=== PATIENT | male | born 1950 | race Asian ===

== ENCOUNTER 2018-09-27 10:33 | Emergency (ER) | payer MEDICARE, OTHER ==
[~2018-09-27] VITALS: Ht 167.6 cm; Wt 72.6 kg
[2018-09-27 10:33] VITALS: BP_SYST 151
[~2018-09-27 10:33] MED LIST: APR25 PO; COLL100 PO; CYAN100020 IM; INSU100C5; LOVI40 SQ; NEU100 PO; POTA10TA15 PO; PRO20 PO; REM15 PO; TERA10CA4 PO
[2018-09-27 11:36] LABS: CALCIUM 10.9 mg/dL (8.4-11.0); CREATININE 2.5 mg/dL (0.55-1.30); POTASSIUM 3.7 mmol/L (3.5-5.1)
[2018-09-27 11:37] LABS: HEMATOCRIT 45.6 % (36-54); HEMOGLOBIN 15.4 g/dL (14.0-18.0); MEAN CORPUSCULAR HEMOGLOBIN 28 pg (27-31); MEAN CORPUSCULAR HGB CONC 34 % (32-36); MEAN CORPUSCULAR VOLUME 83 fL (79.0-98.0); PLATELET COUNT (AUTO) 213 K/uL (130-430); RED BLOOD CELL COUNT(AUTO) 5.49 MIL/uL (4.2-6.2); RED CELL DISTRIBUTION WIDTH 12.8 % (9.0-15.0)
[2018-09-27 11:38] LABS: BASOPHILS # (AUTO) 0.1 K/uL (0.0-0.2); BASOPHILS % (AUTO) 1.1 % (0.0-2.0); EOSINOPHILS # (AUTO) 0.5 K/uL (0.0-0.4); EOSINOPHILS % (AUTO) 3.8 % (0.0-4.0); LYMPHOCYTES # (AUTO) 2.8 K/uL (1.0-5.5); MONOCYTES # (AUTO) 0.8 K/uL (0.0-1.0); MONOCYTES % (AUTO) 6.7 % (1.7-9.3); NEUTROPHILS # (AUTO) 7.8 K/uL (1.8-7.7); NEUTROPHILS % (AUTO) 65.4 % (40.0-70.0)
[2018-09-27 11:39] LABS: ALBUMIN 3.1 g/dL (3.4-4.8); TOTAL BILIRUBIN 0.5 mg/dL (0.0-1.0); URIC ACID 11.2 mg/dL (2.4-7.0)
[2018-09-27 14:20] VITALS: BP_SYST 133
== END 2018-09-27 14:18 | disposition short-term general hospital (02) ==
LOC: SED 10:33
DX: M10.062 Idiopathic gout, left knee (principal); G61.0 Guillain-Barre syndrome; E11.9 Type 2 diabetes mellitus without complications; I10 Essential (primary) hypertension; Z88.0 Allergy status to penicillin; Z88.1 Allergy status to other antibiotic agents; Z79.899 Other long term (current) drug therapy
CPT/HCPCS: 36415; 73560-TC; 80053; 84550-TC; 85025; 99285

== ENCOUNTER 2018-10-27 13:03 | Inpatient (IN) | payer MEDICARE ==
[~2018-10-27] VITALS: Ht 167.6 cm; Wt 84.4 kg
[2018-10-27 13:03] VITALS: BP_SYST 155
[2018-10-27] MEDS ORDERED: NACL 0.9% 1,000 ML IV ONE (13:05)
--- NOTE | 2018-10-27 13:05 | NUR ---
Patient to ER bed 4 to gown for evaluation. Side rails up.
--- NOTE | 2018-10-27 13:10 | NUR ---
Patient arrived via BLS ambulance, from home. Patient c/c of generalized weakness x 2 days, and fever. Current temperature of 103.1. Patient has history of DM and HTN. No medications have been used to treat symptoms. Patient denies pain at the moment, appetite decreased. Patient denies body aches, nausea, vomiting, diarrhea, chest pain, or shortness of breath. Will continue to follow up and monitor. Patient placed on engine monitor.
--- NOTE | 2018-10-27 13:12 | NUR ---
ER at bedside examining patient.
[2018-10-27] MEDS ORDERED: IBUPROFEN 800 MG TABLET PO ONE (13:30)
[2018-10-27] MEDS ORDERED: ACETAMINOPHEN 500 MG TABLET PO ONE (13:30)
[2018-10-27 13:39] LABS: BASOPHILS # (AUTO) 0.3 K/uL (0.0-0.2); BASOPHILS % (AUTO) 1.8 % (0.0-2.0); EOSINOPHILS # (AUTO) 0.1 K/uL (0.0-0.4); EOSINOPHILS % (AUTO) 0.6 % (0.0-4.0); HEMATOCRIT 38.7 % (36-54); HEMOGLOBIN 12.6 g/dL (14.0-18.0); LYMPHOCYTES # (AUTO) 1.9 K/uL (1.0-5.5); LYMPHOCYTES % (AUTO) 12.4 % (20.5-51.5); MEAN CORPUSCULAR HEMOGLOBIN 28 pg (27-31); MEAN CORPUSCULAR HGB CONC 33 % (32-36); MEAN CORPUSCULAR VOLUME 87 fL (79.0-98.0); MONOCYTES # (AUTO) 1.1 K/uL (0.0-1.0); MONOCYTES % (AUTO) 6.9 % (1.7-9.3); NEUTROPHILS # (AUTO) 12.1 K/uL (1.8-7.7); NEUTROPHILS % (AUTO) 78.3 % (40.0-70.0); PLATELET COUNT (AUTO) 170 K/uL (130-430); RED BLOOD CELL COUNT(AUTO) 4.47 MIL/uL (4.2-6.2); RED CELL DISTRIBUTION WIDTH 14.9 % (9.0-15.0); WHITE BLOOD COUNT (AUTO) 15.5 K/uL (4.8-10.8)
[2018-10-27 13:40] LABS: CALCIUM 8.1 mg/dL (8.4-11.0); CREATININE 2.33 mg/dL (0.55-1.30)
[2018-10-27 13:45] LABS: PROTHROMBIN TIME 10.4 SECS (9.5-12.5)
[2018-10-27 13:46] LABS: ALBUMIN 2.6 g/dL (3.4-4.8); TOTAL BILIRUBIN 0.7 mg/dL (0.0-1.0)
--- NOTE | 2018-10-27 13:49 | NUR ---
Critical value obtained, Troponin 0.192, MD made aware. No change in orders.
[2018-10-27] MEDS ORDERED: ASPIRIN 81 MG TAB.CHEW PO ONE (14:00)
[2018-10-27] MEDS ORDERED: cefTRIAXone 1 GM IVPB PREMIX 50 ML IV ONE (14:15)
--- NOTE | 2018-10-27 14:20 | NUR ---
Patient has temperature of 103.0, cooling measures implemented. Removed all excess clothing, placed in gown, removed blankets, and applied ice packs to bilateral groin, bilateral axilla, and bilateral chest. Will recheck.
[2018-10-27] MEDS ORDERED: AZITHROMYCIN 500 MG in NS 250 ML IV ONE (14:30)
[2018-10-27] MEDS: NACL 0.9% 1,000 ML IV SCH ×3 (14:45→20:51)
[2018-10-27] MEDS ORDERED: CETI1TAB2 PO (14:55)
[2018-10-27] MEDS ORDERED: LISI-600 PO (14:55)
[2018-10-27] MEDS ORDERED: FEBU80TA PO (14:55)
--- NOTE | 2018-10-27 14:55 | NUR ---
Patient has temperature of 102.1, cooling measures implemented. Removed all excess clothing, placed in gown, removed blankets, and applied ice packs to bilateral groin, bilateral axilla, and bilateral chest. Will recheck.
[2018-10-27] MEDS ORDERED: LEVOFLOXACIN 500 MG/D5W 100 ML IV ONE (15:00)
--- NOTE | 2018-10-27 15:00 | NUR ---
Orders obtained from Dr. Pedraza, entered by RN.
[2018-10-27] MEDS ORDERED: NPH,100V2 SQ (15:36)
[2018-10-27] MEDS ORDERED: COLC0.6T67 PO (15:36)
[2018-10-27] MEDS ORDERED: FAMO40TA7 PO (15:36)
[2018-10-27] MEDS ORDERED: ASA81 PO (15:36)
[2018-10-27] MEDS ORDERED: ATOR20TA64 PO (15:36)
[2018-10-27] MEDS ORDERED: NOR10 PO (15:36)
[2018-10-27] MEDS ORDERED: ATEN50TA PO (15:36)
[2018-10-27] MEDS ORDERED: PRO20 PO (15:36)
[2018-10-27] MEDS ORDERED: FAMO40OR4 PO (15:36)
[2018-10-27] MEDS ORDERED: ERGO500020 PO (15:36)
--- NOTE | 2018-10-27 15:45 | NUR ---
Patient will be admitted to care of Dr. Pedraza. Admitted to Tele unit. Will go to room 100A. Belongings list completed. Summary report printed. Report will be given at bedside.
--- NOTE | 2018-10-27 15:57 | NUR ---
Admission Note Received patient from ER with diagnosis of Influenza. Initial Plan of Care discussed-patient verbalized understanding. Family at bedside. Oriented to room, call light, pain management and safety.
[2018-10-27] MEDS ORDERED: OSELTAMIVIR PHOSPHATE 6 MG/1 ML, 60 ML SUSP PO ONE (16:00)
[2018-10-27] MEDS ORDERED: DOCUSATE SODIUM 100 MG/10 ML UDC PO PRN (16:00)
[2018-10-27] MEDS ORDERED: CYANOCOBALAMIN IM SCH (16:00)
[2018-10-27] MEDS ORDERED: hydrALAZINE HCL 20 MG/ML VIAL IVP PRN (16:00)
--- NOTE | 2018-10-27 16:14 | NUR ---
Dr. krueger Rounds at this time, family remains at bedside, will follow through with MD orders
[2018-10-27 16:36] VITALS: BP_SYST 135
--- NOTE | 2018-10-27 16:51 | NUR ---
Tatum-flu given at this time per MD orders, asked Dr. Pedraza at the nurses' station. Patient tolerated well, family remains at bedside, safety precautions remain in place, bedside table and call light within reach, will continue to monitor patient
--- NOTE | 2018-10-27 17:06 | NUR ---
CONSULTATION PAGED/CALLED Reason for Consultation: [] ELEVATED TROP Person Who was Notified: [] SAMEER Consulting Physician: [] DR LOCK Seismic Plotter Specialty: [] CARDIOLOGY Ordering Physician: [] DR DILL
--- NOTE | 2018-10-27 17:07 | NUR ---
CONSULTATION PAGED/CALLED Reason for Consultation: [] SEPSIS Person Who was Notified: [] DR ULISES NEFF Consulting Physician: [] DR ULISES NEFF Phytopathologist Specialty: [] ID Ordering Physician: [] DR Rafael DILL
--- NOTE | 2018-10-27 17:30 | NUR ---
Spoke with Dr. Mia Peterson US transferred MD to wrong patient, Dr. Bellamy spoke with nurse and got report on wrong patient, was able to talk to Dr. Bellamy and tell him about elevated troponin for patient Usama Cosmejhoana. stated to not call him tonight for elevated troponin tonight
--- NOTE | 2018-10-27 17:42 | NUR ---
ERRONEOUS REPORT FOR A ANOTHER PT WAS CALLED TO DR LOCK FOR CARDIOLOGY CONSULT. CALLED DR LOCK AGAIN TO CORRECT AND CLARIFY THE RIGHT PT WITH CARDIOLOGY CONSULT. SPOKE TO SAMEER AT THE EXCHANGE AND LEFT MESSAGE ON HIS CELL PHONE. DR LOCK CALLED BACK AND THE RIGHT INFO WITH CARDIOLOGY CONSULT WAS GIVEN BY THE NURSE, CHRISTIAN.
--- NOTE | 2018-10-27 17:50 | NUR ---
Spoke with Dr. Bellamy Again gave him report on patient and informed him about elevated troponin, MD verbalized understanding and stated again to not call him for critical troponins tonight, will endorse to night warehouse selector nurse
--- NOTE | 2018-10-27 18:20 | NUR ---
UA sent to Lab at this time, patient voided 350 mL clear yellow urine per urinal. No complaints of pain, breathing unlabored on room air, IV fluids infusing at this time. Eafety precautions remain in place, bedside table and call light within reach, will continue to monitor patient
[2018-10-27 18:21] LABS: BILIRUBIN,URINE NEGATIVE (NEGATIVE); BLOOD, URINE NEGATIVE (NEGATIVE); CLARITY/URINE CLEAR (CLEAR); COLOR,URINE YELLOW (YELLOW); GLUCOSE,URINE NEGATIVE (NEGATIVE); KETONES,URINE NEGATIVE (NEGATIVE); LEUKOCYTE ESTERASE ,URINE NEGATIVE (NEGATIVE); NITRITE, URINE NEGATIVE (NEGATIVE); PH,URINE 8.5 (5.0-8.0); PROTEIN URINE 3+ (NEGATIVE); UROBILINOGEN,URINE 0.2 (0.2-1.0)
[2018-10-27 18:36] LABS: BACTERIA,URINE FEW /HPF (None Seen); RBC,URINE NONE SEEN /HPF (0-3); WBC,URINE 0-3 /HPF (0-3)
[2018-10-27 18:37] LABS: FINE GRANULAR CASTS,URINE 0-10 /LPF (None Seen); MUCUS,URINE None Seen /LPF (None Seen)
--- NOTE | 2018-10-27 18:54 | NUR ---
Closing Note patient resting in bed, awake and alert, HOB elevated, IV site remains patent, safety precautions remain in place, bedside table and call light within reach, bed alarm on, will endorse to grocery packer nurse
[2018-10-27 19:45] VITALS: BP_SYST 145
--- NOTE | 2018-10-27 19:45 | NUR ---
INITIAL NOTE AT INITIAL ASSESSMENT, PATIENT IS RESTING IN BED, STABLE, NO SIGNS OF RESPIRATORY DISTRESS. PATIENT VERBALIZES NO SOB OR PAIN. PLAN OF CARE FOR THE EVENING IS COMMUNICATED WITH THE PATIENT. CALL LIGHT- TEACH BACK IS SUCCESSFUL. BED IS LOCKED, ALARMED, AND AT THE LOWEST LEVEL. FALL, SAFETY, AND RESPIRATORY PRECAUTIONS WILL BE IN PLACE THROUGHOUT THE SHIFT.
[2018-10-27] MEDS: MIRTAZAPINE 15 MG TABLET PO SCH (20:42)
[2018-10-27] MEDS: hydrALAZINE HCL 25 MG TABLET PO SCH (20:43)
[2018-10-27] MEDS: ATENOLOL 50 MG TABLET (TENORMIN) PO SCH (20:43)
[2018-10-27] MEDS: GABAPENTIN 100 MG CAPSULE PO SCH (20:43)
[2018-10-27] MEDS: TERAZOSIN HCL 5 MG CAPSULE (HYTRIN) PO SCH (20:44)
[2018-10-27] MEDS: OSELTAMIVIR PHOSPHATE 6 MG/1 ML, 60 ML SUSP PO SCH (20:45)
[2018-10-27] MEDS ORDERED: TERAZOSIN HCL 10 MG PO SCH (21:00)
--- NOTE | 2018-10-27 21:43 | NUR ---
NOTE SCHEDULED PM MEDICATIONS GIVEN AT THIS TIME. PATIENT IS RESTING IN BED, STABLE, NO SIGNS OF RESPIRATORY DISTRESS. CALL LIGHT WITHIN IN REACH. BED IS LOCKED, ALARMED, AND AT THE LOWEST LEVEL.
--- NOTE | 2018-10-27 23:40 | NUR ---
NOTE PATIENT IS SLEEPING, STABLE, NO SIGNS OF RESPIRATORY DISTRESS. CALL LIGHT WITHIN IN REACH. BED IS LOCKED, ALARMED, AND AT THE LOWEST LEVEL.
[2018-10-28 00:06] VITALS: BP_SYST 129
--- NOTE | 2018-10-28 01:38 | NUR ---
NOTE PATIENT IS SLEEPING, STABLE, NO SIGNS OF RESPIRATORY DISTRESS. CALL LIGHT WITHIN IN REACH. BED IS LOCKED, ALARMED, AND AT THE LOWEST LEVEL.
--- NOTE | 2018-10-28 03:35 | NUR ---
NOTE PATIENT IS SLEEPING, STABLE, NO SIGNS OF RESPIRATORY DISTRESS. CALL LIGHT WITHIN IN REACH. BED IS LOCKED, ALARMED, AND AT THE LOWEST LEVEL.
--- NOTE | 2018-10-28 04:24 | NUR ---
NOTE PATIENT IS RESTING IN BED, STABLE, NO SIGNS OF RESPIRATORY DISTRESS. CALL LIGHT WITHIN IN REACH. BED IS LOCKED, ALARMED, AND AT THE LOWEST LEVEL.
--- NOTE | 2018-10-28 05:14 | NUR ---
NOTE PATIENT IS RESTING IN BED, STABLE, NO SIGNS OF RESPIRATORY DISTRESS. CALL LIGHT WITHIN IN REACH. BED IS LOCKED, ALARMED, AND AT THE LOWEST LEVEL.
[2018-10-28 06:40] LABS: BASOPHILS # (AUTO) 0.1 K/uL (0.0-0.2); BASOPHILS % (AUTO) 0.8 % (0.0-2.0); CALCIUM 7.2 mg/dL (8.4-11.0); CREATININE 2.3 mg/dL (0.55-1.30); EOSINOPHILS # (AUTO) 0.1 K/uL (0.0-0.4); EOSINOPHILS % (AUTO) 1.3 % (0.0-4.0); HEMATOCRIT 34.8 % (36-54); HEMOGLOBIN 11.4 g/dL (14.0-18.0); LYMPHOCYTES # (AUTO) 1.3 K/uL (1.0-5.5); LYMPHOCYTES % (AUTO) 12.2 % (20.5-51.5); MEAN CORPUSCULAR HEMOGLOBIN 29 pg (27-31); MEAN CORPUSCULAR HGB CONC 33 % (32-36); MEAN CORPUSCULAR VOLUME 87 fL (79.0-98.0); MONOCYTES # (AUTO) 0.8 K/uL (0.0-1.0); MONOCYTES % (AUTO) 7.5 % (1.7-9.3); NEUTROPHILS # (AUTO) 8.6 K/uL (1.8-7.7); NEUTROPHILS % (AUTO) 78.2 % (40.0-70.0); PLATELET COUNT (AUTO) 132 K/uL (130-430); POTASSIUM 4.3 mmol/L (3.5-5.1); RED BLOOD CELL COUNT(AUTO) 3.99 MIL/uL (4.2-6.2); RED CELL DISTRIBUTION WIDTH 15.1 % (9.0-15.0); WHITE BLOOD COUNT (AUTO) 10.9 K/uL (4.8-10.8)
[2018-10-28 06:50] LABS: ALBUMIN 1.9 g/dL (3.4-4.8); TOTAL BILIRUBIN 0.5 mg/dL (0.0-1.0)
--- NOTE | 2018-10-28 06:55 | NUR ---
CLOSING NOTE PATIENT SLEPT WELL THROUGHOUT THE SHIFT. AT THIS TIME, PATIENT IS RESTING IN BED, STABLE, NO SIGNS OF RESPIRATORY DISTRESS. CALL LIGHT WITHIN REACH. BED IS LOCKED, ALARMED, AND AT THE LOWEST LEVEL. WILL CONTINUE TO MONITOR UNTIL SHIFT REPORT IS GIVEN AT BEDSIDE TO AM NURSE. FALL AND SAFETY PRECAUTIONS HAVE BEEN IN PLACE THROUGHOUT SHIFT.
--- NOTE | 2018-10-28 07:12 | NUR ---
Nutrition Update George Scale 18 noted. Pt admitted for Influenza Diet: [facility] diet BMI: 30 kg/m2 RD to follow per nutrition care standards.
--- NOTE | 2018-10-28 08:00 | NUR ---
AM rounds: Awake, oriented x4. States " I feel a little better." Patient is bedrest, states he does not ambulate as much even at home due to gout. Encouraged patient to ask for assist for adls. Call light within reach.
[2018-10-28 08:30] VITALS: BP_SYST 135
[2018-10-28] MEDS: GABAPENTIN 100 MG CAPSULE PO SCH ×3 (08:34→21:12)
[2018-10-28] MEDS: ATENOLOL 50 MG TABLET (TENORMIN) PO SCH ×2 (08:36→21:14)
[2018-10-28] MEDS: hydrALAZINE HCL 25 MG TABLET PO SCH ×3 (08:37→21:11)
[2018-10-28] MEDS: NACL 0.9% 1,000 ML IV SCH ×2 (08:57→11:58)
[2018-10-28] MEDS ORDERED: ENOXAPARIN SODIUM 30 MG/0.3 ML SYRINGE SUBCUT SCH (09:00)
[2018-10-28] MEDS ORDERED: ATORVASTATIN 20 MG TABLET PO SCH (09:00)
[2018-10-28] MEDS ORDERED: amLODIPine BESYLATE 10 MG TABLET PO SCH (09:00)
[2018-10-28] MEDS ORDERED: FAMOTIDINE 20 MG TABLET PO SCH (09:00)
[2018-10-28] MEDS ORDERED: COLCHICINE 0.6 MG TABLET PO SCH (09:00)
[2018-10-28] MEDS ORDERED: TAMSULOSIN HCL 0.4 MG CAP PO SCH (09:00)
[2018-10-28] MEDS ORDERED: FLUoxetine HCL 20 MG CAPSULE (PROzac) PO SCH (09:00)
[2018-10-28] MEDS ORDERED: ASPIRIN 81 MG TAB.CHEW PO SCH (09:00)
[2018-10-28] MEDS ORDERED: ENOXAPARIN SODIUM 40 MG/0.4 ML SYRINGE SQ SCH (09:00)
[2018-10-28] MEDS: OSELTAMIVIR PHOSPHATE 6 MG/1 ML, 60 ML SUSP PO SCH ×2 (09:13→21:13)
--- NOTE | 2018-10-28 11:31 | NUR ---
DC Planning: Contacted [facility] dept/[place] # [phone], fax# [phone], updated pt 's status, pending clay carman consultation dt elevated Tr x3. CM is waiting for the assigned CM returning call for further instructions. Addendum: 10/28/18 at 1358 by Lidya Boles RN >> Faxed transfer order to [facility] dept/nitza Ribeiro fax# [phone]. The pt is stable , need Tele bed, no isolation .
--- NOTE | 2018-10-28 12:11 | NUR ---
Bladder Scan: Scan is done with 147 residual urine.
[2018-10-28 12:33] VITALS: BP_SYST 142
[2018-10-28] MEDS ORDERED: methylPREDNISolone SOD SUCC 40 MG/ML VIAL IVP ONE (13:15)
[2018-10-28] MEDS ORDERED: methylPREDNISolone SOD SUCC/PF 62.5 MG/ML VIAL IVP SCH ×2 (13:15→18:00)
[2018-10-28] MEDS ORDERED: LEVOFLOXACIN 250 MG/D5W 50 ML IV SCH (13:30)
[2018-10-28 20:40] VITALS: BP_SYST 137
[2018-10-28] MEDS: TERAZOSIN HCL 5 MG CAPSULE (HYTRIN) PO SCH (21:12)
[2018-10-28] MEDS: MIRTAZAPINE 15 MG TABLET PO SCH (21:13)
--- NOTE | 2018-10-29 00:11 | NUR ---
PHONED [facility] [phone] TELEPHONE REPORT , SBAR GIVEN TO CARROLL FELTON , PATIENT ALERT & AWARE AND TO TRANSFER TO ROOM [id number] [facility] .
[2018-10-29 00:13] VITALS: BP_SYST 137
[2018-10-29 00:15] VITALS: BP_SYST 129
--- NOTE | 2018-10-29 01:11 | NUR ---
PHONED [facility]BULANCE TRANSPORTATION [facility] [phone] , PICK - UP WILL ABOUT TWO HOURS .
--- NOTE | 2018-10-29 02:00 | NUR ---
MEDIC - ONE HERE FOR PICK - UP PATIENT TRANSFER TO [facility] , TELE BOX REMOVED ORDERS CARRIED OUT .
== END 2018-10-29 02:00 | disposition short-term general hospital (02) | DRG 871 ==
LOC: SED 13:03 → STU 14:31
PROVIDERS: ADMIT Internal Medicine; ATTEND Internal Medicine
DX: A41.9 Sepsis, unspecified organism (principal); N17.0 Acute kidney failure with tubular necrosis; J18.1 Lobar pneumonia, unspecified organism; G61.0 Guillain-Barre syndrome; E87.1 Hypo-osmolality and hyponatremia; L03.119 Cellulitis of unspecified part of limb; E11.22 Type 2 diabetes mellitus with diabetic chronic kidney disease; E78.5 Hyperlipidemia, unspecified; I12.9 Hypertensive chronic kidney disease with stage 1 through stage 4 chronic kidney disease, or unspecified chronic kidney disease; K21.9 Gastro-esophageal reflux disease without esophagitis; N18.3 Chronic kidney disease, stage 3 (moderate); E11.21 Type 2 diabetes mellitus with diabetic nephropathy; J11.1 Influenza due to unidentified influenza virus with other respiratory manifestations; N40.0 Benign prostatic hyperplasia without lower urinary tract symptoms; M10.9 Gout, unspecified; Z88.8 Allergy status to other drugs, medicaments and biological substances; Z88.1 Allergy status to other antibiotic agents; Z79.899 Other long term (current) drug therapy; Z79.82 Long term (current) use of aspirin; Z82.49 Family history of ischemic heart disease and other diseases of the circulatory system
CPT/HCPCS: 36415; 36600; 71045; 80053; 81000-TC; 82150-TC; 82550-TC; 82803-TC; 82962; 83605; 83690-TC; 84484; 84550-TC; 85025; 85610-TC; 85651-TC; 85730-TC; 86710; 87040-TC; 87081; 93005; 93306; 93970; 96365; 99285; G0378; G9035; J0456; J0696; J1030; J1650; J1956; J2930; J7030; J7050

== ENCOUNTER 2019-04-26 06:22 | Emergency (ER) | payer MEDICARE ==
[~2019-04-26] VITALS: Ht 167.6 cm; Wt 72.6 kg
[~2019-04-26 06:22] MED LIST changes: +ASA81 PO; +ATEN50TA PO; +ATOR20TA64 PO; +CETI1TAB2 PO; +COLC0.6T67 PO; +ERGO500020 PO; +FAMO40OR4 PO; +FAMO40TA7 PO; +FEBU80TA PO; +LISI-600 PO; +NOR10 PO; +NPH,100V2 SQ
[2019-04-26 06:30] VITALS: BP_SYST 115
[2019-04-26] MEDS ORDERED: DULO60CA41 PO (06:44)
[2019-04-26] MEDS ORDERED: FURO-149 PO (06:44)
[2019-04-26] MEDS ORDERED: NACL 0.9% 1,000 ML IV ONE ×2 (06:45→08:00)
[2019-04-26] MEDS ORDERED: FEBU40TA PO (06:45)
[2019-04-26] MEDS ORDERED: CALC667T5 PO (06:47)
[2019-04-26] MEDS ORDERED: FLUO40CA8 PO (06:48)
[2019-04-26] MEDS ORDERED: SENN-104 PO (06:48)
[2019-04-26] MEDS ORDERED: CHOL20004 PO (06:51)
[2019-04-26] MEDS ORDERED: CYAN100010 PO (06:52)
[2019-04-26 07:22] LABS: BASOPHILS # (AUTO) 0.1 K/uL (0.0-0.2); BASOPHILS % (AUTO) 1.1 % (0.0-2.0); EOSINOPHILS # (AUTO) 0.7 K/uL (0.0-0.4); EOSINOPHILS % (AUTO) 6.6 % (0.0-4.0); HEMATOCRIT 31.9 % (36-54); HEMOGLOBIN 10.6 g/dL (14.0-18.0); LYMPHOCYTES # (AUTO) 1.9 K/uL (1.0-5.5); LYMPHOCYTES % (AUTO) 17.1 % (20.5-51.5); MEAN CORPUSCULAR HEMOGLOBIN 28 pg (27-31); MEAN CORPUSCULAR HGB CONC 33 % (32-36); MEAN CORPUSCULAR VOLUME 84 fL (79.0-98.0); MONOCYTES # (AUTO) 0.7 K/uL (0.0-1.0); MONOCYTES % (AUTO) 6.4 % (1.7-9.3); NEUTROPHILS # (AUTO) 7.8 K/uL (1.8-7.7); NEUTROPHILS % (AUTO) 68.8 % (40.0-70.0); PLATELET COUNT (AUTO) 240 K/uL (130-430); RED BLOOD CELL COUNT(AUTO) 3.79 MIL/uL (4.2-6.2); RED CELL DISTRIBUTION WIDTH 14.6 % (9.0-15.0); WHITE BLOOD COUNT (AUTO) 11.3 K/uL (4.8-10.8)
[2019-04-26 07:31] LABS: POTASSIUM 3.1 mmol/L (3.5-5.1)
[2019-04-26 07:32] LABS: CALCIUM 9.7 mg/dL (8.4-11.0); CREATININE 2.73 mg/dL (0.55-1.30)
[2019-04-26 07:42] LABS: ALBUMIN 2.2 g/dL (3.4-4.8); TOTAL BILIRUBIN 0.3 mg/dL (0.0-1.0)
[2019-04-26 08:11] LABS: BILIRUBIN,URINE NEGATIVE (NEGATIVE); BLOOD, URINE NEGATIVE (NEGATIVE); CLARITY/URINE CLEAR (CLEAR); COLOR,URINE YELLOW (YELLOW); GLUCOSE,URINE NEGATIVE (NEGATIVE); KETONES,URINE NEGATIVE (NEGATIVE); LEUKOCYTE ESTERASE ,URINE NEGATIVE (NEGATIVE); NITRITE, URINE NEGATIVE (NEGATIVE); PROTEIN URINE 2+ (NEGATIVE); UROBILINOGEN,URINE 0.2 (0.2-1.0)
[2019-04-26 08:17] LABS: BACTERIA,URINE RARE /HPF (None Seen); MUCUS,URINE 1+ /LPF (None Seen); RBC,URINE 0-3 /HPF (0-3); WBC,URINE 0-3 /HPF (0-3)
[2019-04-26] MEDS ORDERED: ASPIRIN 325 MG TABLET PO ONE (08:30)
[2019-04-26 11:57] VITALS: BP_SYST 119
== END 2019-04-26 11:57 | disposition short-term general hospital (02) ==
LOC: SED 06:22
DX: R74.8 Abnormal levels of other serum enzymes (principal); E87.2 Acidosis; R53.1 Weakness; Z88.1 Allergy status to other antibiotic agents; Z88.8 Allergy status to other drugs, medicaments and biological substances; Z79.82 Long term (current) use of aspirin; Z79.899 Other long term (current) drug therapy
CPT/HCPCS: 36415; 71045; 80053; 81000; 82550; 83605; 84484; 85025; 85610; 85730; 87040; 87086; 93005; 99285; J7030

== ENCOUNTER 2019-05-02 19:48 | Emergency (ER) | payer MEDICARE ==
[~2019-05-02] VITALS: Ht 167.6 cm; Wt 72.6 kg
[~2019-05-02 19:48] MED LIST changes: +CALC667T5 PO; +CHOL20004 PO; -COLL100 PO; +CYAN100010 PO; +DULO60CA41 PO; +FEBU40TA PO; -FEBU80TA PO; +FLUO40CA8 PO; +FURO-149 PO; -PRO20 PO; +SENN-104 PO
[2019-05-02 19:50] VITALS: BP_SYST 115
[2019-05-02 21:48] LABS: BASOPHILS # (AUTO) 0.2 K/uL (0.0-0.2); BASOPHILS % (AUTO) 1.2 % (0.0-2.0); EOSINOPHILS # (AUTO) 0.4 K/uL (0.0-0.4); EOSINOPHILS % (AUTO) 3.5 % (0.0-4.0); HEMATOCRIT 31.4 % (36-54); HEMOGLOBIN 10.6 g/dL (14.0-18.0); LYMPHOCYTES # (AUTO) 2.1 K/uL (1.0-5.5); LYMPHOCYTES % (AUTO) 16.4 % (20.5-51.5); MEAN CORPUSCULAR HEMOGLOBIN 29 pg (27-31); MEAN CORPUSCULAR HGB CONC 34 % (32-36); MEAN CORPUSCULAR VOLUME 85 fL (79.0-98.0); MONOCYTES # (AUTO) 0.7 K/uL (0.0-1.0); MONOCYTES % (AUTO) 5.7 % (1.7-9.3); NEUTROPHILS # (AUTO) 9.2 K/uL (1.8-7.7); NEUTROPHILS % (AUTO) 73.2 % (40.0-70.0); PLATELET COUNT (AUTO) 254 K/uL (130-430); RED CELL DISTRIBUTION WIDTH 14.9 % (9.0-15.0); WHITE BLOOD COUNT (AUTO) 12.6 K/uL (4.8-10.8)
[2019-05-02 21:58] LABS: CALCIUM 9.2 mg/dL (8.4-11.0); CREATININE 2.64 mg/dL (0.55-1.30); POTASSIUM 4.6 mmol/L (3.5-5.1)
[2019-05-02 22:02] LABS: ALBUMIN 2.6 g/dL (3.4-4.8); TOTAL BILIRUBIN 0.3 mg/dL (0.0-1.0)
[2019-05-02] MEDS ORDERED: NACL 0.9% 1,000 ML IV ONE (23:00)
[2019-05-03 00:53] VITALS: BP_SYST 128
== END 2019-05-03 00:54 | disposition short-term general hospital (02) ==
LOC: SED 19:48
DX: K59.00 Constipation, unspecified (principal); R53.1 Weakness; E11.9 Type 2 diabetes mellitus without complications; I10 Essential (primary) hypertension; Z88.1 Allergy status to other antibiotic agents; Z88.8 Allergy status to other drugs, medicaments and biological substances; Z79.899 Other long term (current) drug therapy
CPT/HCPCS: 36415; 74021; 80053; 82962; 85025; 99285; J7030